=== PATIENT | male | born 1970 | race Caucasian/White ===

== ENCOUNTER 2021-12-05 09:58 | Outpatient (CLI) | payer OTHER, SELFPAY ==
--- OUTSIDE RECORDS SUMMARY | 2021-12-05 10:02 | XMS_ITS | Encounter Summary ---
:1970 Author Care Team Providers Name Role Phone Dr. Ghassan Grace MD Referring Provider [phone] Reason for Visit Obstructive sleep apnea of adult; Snorin g; sleep apnea appliance insertion Assessment and Plan Assessment Note Patient was seen today for follow-up an d insertion of an Nohemi intraoral mandibular advancement appliance. Diagnosis and contributing factors were reviewed. Questions were answered. Today the intraoral appliance was fit to patient comfort. No adjustments were necessary. Instructions on proper use and care were discussed/reviewed both written and verbally. Potential side effects wer e reviewed. The patient was advised to d iscontinue oral appliance use should they experience untoward side effects or be unable to return for follow-up care. The patient was advised to return in 3-4 wee ks to reassess their progress and contin ue their treatment plan as previously outlined. History today was obtained from the vijaya ent. The patient has 2 diagnoses they would like to address. Their symptoms are chronic. This case is low complexity because of limited diagnoses and chronic natu re. Risk of complications including ken toring for complications of treatment were discussed. Today time spent may have included a review of past records, history taking, review of diagnoses, contributi ng factors, treatment plan, diagnostic t esting, prognosis, expectations, risks and complications of treatment/no treatment, discussions with other providers and completing documentation was 25 minutes. 1. Obstructive sleep apnea of adult AHI= 5.1; RDI 14.6 2. Snoring Discussion Note: None recorded.Patient educational handouts: No information available. Plan of Care Reminders Provider Appointments None recorded. ? ? Lab None recorded. ? ? Referral None recorded. ? ? Procedures None recorded. ? ? Surgeries None recorded. ? ? Imaging None recorded. ? ? Medications Name Start Date ? ? lisinopril 20 mg tablet ? TAKE 1 TABLET BY MOUTH EVERY MORNING. simvastatin 20 mg tablet ? TAKE 1 TABLET BY MOUTH DAILY AT BEDTIME. Medications Administered None recorded. Vitals Height Blood Pressure 5 ft 9 in 120/72.98 mm[Hg] Results Lab Results None recorded. Allergies Code Code System Name Reaction Severity Onset NKDA ? ? ? Problems Name Status Onset Date Source ? Obstructive Sleep Apnea of Adult Active 11/09/2019 ? Snoring Active 11/09/2019 ? Procedures Date Name Performed by ? 04/10/2001 [place] Teeth Extraction Information not available Vaccine List Vaccine Type influenza, seasonal, injectable 03/24/2017 SARS-COV-2 COVID-19 VLP Non-US Vaccine ( [place], Covifenz) 06/07/2020 Social History Tobacco Smoking Status Never Smoker What type of diet are you following? REGULAR How many children do you have? 2 Are you currently employed? Y How did primary problem begin? Snoring Relationship Status Employed Work related injury? N Marital Status Do you reside in or have you traveled to an area N where Ebola virus transmission is active? What was the date of your most recent tobacco 05/15/2017 screening? General stress level Medium What number best describes how, during the past 0 week, pain has interfered with your general activity? (0=does not interfere, 10=completely interferes) Do you use any illicit or recreational drugs? N What is your exercise level? Moderate What is your level of alcohol consumption? 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 N What number best describes your pain on average 0 in the past week? (0=no pain, 10=pain as bad as you can imagine) What number best describes how, during the past 0 week, pain has interfered with your enjoyment of life? (0=does not interfere, 10= completely interferes) What is your level of caffeine consumption? 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 Past Encounters 10/01/2021 Obstructive Sleep Apnea of Adult; Nunu Mendez, DDS: [address], [address], [place] [address], Ph. History of Present Illness ? Obstructive Sleep Apnea Reported By: Patient HPI: Associated Symptoms: likelih ood of falling asleep during the day while sitting and reading 0, likel ihood of falling asleep during the day while watching television 1, likel ihood of falling asleep during the day while sitting inactive in a public place 0, likelihood of falling asleep during the day as passenger in car for extended time 0, likelihood of falling asleep during the da y while lying down to rest in the afternoon 1, likelihood of falling asl eep during the day while sitting and talking to someone 0, likelihood of falling asleep during the day while sitting quietly after lunch (no alco hol) 0, likelihood of falling asleep during the day in a car while stopp ed in traffic 0; Cuddy: 2 Note: <div>Patient presents today for insertion of a {{mandibular stabilization maxillary stabilization repositioning mandibular advancement mandibular advancement ([place]eer)#}} oral appliance. They note{{no changes in* improved worsening}} symptoms which along with prior data was reviewed, updated anddocumented in the patient history of present illness. he describes {{compliance* partial compliance non-compliance}} with home self care as previously recommended.</div><div>
</div> Review of Systems ? Comprehensive General Adult ROS Reported By: Patient Constitutional: Constitutional: no fever, no night sweats, no significant weight gain, no significant weight loss, no exercise intolerance Eyes: Eyes: no dry eyes, no vision change, no irritation ENMT: Ears: no difficulty hearing, no ear pain. Nose: no frequent nosebleeds, no nose problems , no sinus problems. Mouth/Throat: no sore throat, no bleeding gums, no dry mouth, no mouth ulcers, no teeth problems, s noring Cardiovascular: Cardiovascular: no chest ирина n, no arm pain on exertion, no shortness of breath when wal debra, no shortness of breath when lying down, no palpitations, no known heart murmur Respiratory: Respiratory: no cough, no wh eezing, no shortness of breath, no coughing up blood, sleep pododermatologist ea Gastrointestinal: Gastrointestinal: no abdomin al pain, no nausea, no vomiting, no constipation, normal appe tite, no diarrhea, not vomiting blood, no dyspepsia, no GERD Genitourinary: Genitourinary: no incontinen ce, no difficulty urinating, no hematuria, no increased freq uency Musculoskeletal: Musculoskeletal: no muscle a ches, no muscle weakness, no arthralgias/joint pain, no b ack pain, no swelling in the extremities Integumentary: Skin: no abnormal mole, no j aundice, no rashes, no laceration Neurologic: Neurologic: no loss of consc iousness, no weakness, no numbness, no seizures, no di zziness, no migraines, no headaches, no tremor Psychiatric: Psych: no depression, no sle ep disturbances, feeling safe in a relationship, no alcohol abu se, no anxiety, no hallucinations, no suicidal thoughts Endocrine: Endocrine: no fatigue Hematologic/Lymphatic: Hematologic/Lymphatic no swo llen glands, no bruising, no excessive bleeding Allergic/Immunologic: Allergy/Immunologic: no runn y nose, no sinus pressure, no itching, no hives, no freque nt sneezing Physical Exam ? TMD-TMJ Exam, TMD General Ex am Reported By: Patient TMJ: Mandibular ROM Maximum openi ng 45 mm (Active) no pain, protrusion 12mm . TMJ palpat ion TMJ palpation was non-painful. TMJ joint sound s no clicking, no crepitus, no locking. Muscle Palpation No complaints of pain/tenderness in the muscles of mastication. Oral Cavity Dental Attrition both, posterior arch both, p osterior, Anterior guidance Vertical 2mm, Anterior sveta nce Horizontal 2 mm, Teeth: intercuspation bilateral pos terior teeth. Oral Cavity - Airway Obstruction hard [place] te WNL, uvula: WNL. Dental Occlusion L Second premolar, L First premolar, L canine, R Second molar, R First molar, R Second premolar, R First premolar, R canine Constitutional: General Appearance oriented to time, place, and person, well-nourished, well-develop ed, no acute distress Musculoskeletal System: Overall Findings normal over all findings Ears, Nose, Throat: Ears Right External ear WNL, Left External ear WNL. Nose External Nose non-tender Neck: Palpation Left side non-tend er, Right side non-tender. Appearance WNL Neurological System: Cranial Nerves Cranial Nerve s II-XII Grossly Intact Psychiatric Exam: Affect Normal affect, Approp riate to situation
--- OUTSIDE RECORDS SUMMARY | 2021-12-05 10:02 | XMS_ITS | Clinical Summary ---
:1970 Author Organization [facility] [place] [address] Care Team Providers Name Role Phone Markus Penny Primary Care Provider Unavailable Allergies No known active allergies Medications Medication Sig Dispensed Refills Start Date End Date Status FLUTICASONE 50 2 PUFFS EACH 1 3 02/10/2006 A ctive MCG/ACTUATION NASAL NOSTRIL QD SPRAY AEROSOLIndications: Other dyspnea and respiratory abnormality, Chronic rhinitis Active Problems Not on file Immunizations Name Administration Dates Next Due Influenza, IIV4 01/06/2019 Family History Medical History Relation Name Comments Diabetes Father Diabetes Maternal Grandfather Diabetes Paternal Grandfather Relation Name Status Comments Father Maternal Grandfather Paternal Grandfather Social History Tobacco Use Types Packs/Day Years Used Date Never Smoker Alcohol Use Standard Drinks/Week Comments Not Asked 0 (1 standard drink = 0.6 oz pure alcoho l) Sex Assigned at Date Recorded Not on file Obstetrics History Last Filed Vital Signs Vital Sign Reading Time Taken Comments Blood Pressure 130/80 02/10/2006 1: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 Pulse - - Temperature 37 ??C (98.6 ??F) 02/10/2006 1: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 Respiratory Rate - - Oxygen Saturation - - Inhaled Oxygen Concentration - - Weight 98.4 kg (217 lb) 02/10/2006 1: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 Height - - Body Mass Index - - Plan of Treatment Health Maintenance Due Date Last Done Comments COVID-19 vaccine series (#1) 04/19/1973 Tdap 10/18/1983 Depression screening for age 12+ 1984 BMI (ht and wt on same day) for age 18+ 1990 Hepatitis C screening for age 18-79 1990 Tetanus booster 1992 Colonoscopy through age 75 2017 Lipids for age 45-75 2017 Influenza for age 9-49 11/07/2021 01/06/2019 Results Not on filefrom Last 3 Months Insurance Payer Benefit Plan / Subscriber ID Effective Dates Phone Addre ss Type Group BLUE CROSS BLUE CROSS OF [id number] Effective for [address] [place] [address] [facility] [id number] 2018-Presen [address] [address] [place] [address] Care Teams Manager Of Security Relationship Specialty Start Date End Date Markus Penny PCP - General 01/26/06
== END 2021-12-05 09:59 | disposition home or self-care (01) ==
PROVIDERS: PCP Physician Assistant Medical; Visit Provider Surgery
DX: Z12.11 Encounter for screening for malignant neoplasm of colon (principal); K63.5 Polyp of colon; Z86.010 Personal history of colon polyps; Z80.0 Family history of malignant neoplasm of digestive organs
CPT/HCPCS: 45385; 88305; J1200; J2250; J2405; J3010

== ENCOUNTER 2022-09-30 08:49 | Outpatient (CLI) | payer OTHER, SELFPAY | END 2022-09-30 08:50 | disposition home or self-care (01) | LOC: NFLDREF 10-01 07:46 | PROVIDERS: PCP Physician Assistant Medical; Referring Provider Physician Assistant Medical; Visit Provider Physician Assistant Medical | DX: Z00.00 Encounter for general adult medical examination without abnormal findings (principal); I10 Essential (primary) hypertension; E78.5 Hyperlipidemia, unspecified; E78.2 Mixed hyperlipidemia | CPT/HCPCS: 80053; 80061 ==

== ENCOUNTER 2023-06-18 19:18 | Outpatient (CLI) | payer OTHER, SELFPAY ==
--- OUTSIDE RECORDS SUMMARY | 2023-06-18 19:22 | XMS_ITS | Clinical Summary ---
Author Name Unknown Organization [facility] Address [place], [place] [address] Care Team Providers Care Analysis Internship Name Role Phone Markus Penny Primary Care Provider Unavailabl e Allergies No known active allergies Medications Medication Sig Dispensed Refills Start Date End Date Status FLUTICASONE 52 MCG/ACTUATION NASAL SPRAY AEROSOLIndications:Oth er dyspnea and respiratory abnormality,Chronic rhinitis 2 PUFFS EACH NOSTRIL QD 1 3 02/10/2006 Active Immunizations Name Administration Dates Next Due Influenza, IIV4 01/06/2019 Family History Medical History Relation Name Comments Diabetes Father Diabetes Maternal Grandfather Diabetes Paternal Grandfather Relation Name Status Comments Father Maternal Grandfather Paternal Grandfather Social History Tobacco Use Types Packs/Day Years Used Date Smoking Tobacco: Never Alcohol Use Standard Drinks/Week Comments Not Asked 0 (1 standard drink = 0.6 oz pur e alcohol) Sex and Gender Information Value Date Recorded Sex Assigned at Not on file Gender Identity Not on file Sexual Orientation Not on file Obstetrics History Last Filed Vital Signs Vital Sign Reading Time Taken Comments Blood Pressure 130/80 02/10/2006 1:15 PM BAKERY HELPER Pulse - - Temperature 37 ??C (98.6 ??F) 02/10/2006 1:15 PM BAKERY HELPER Respiratory Rate - - Oxygen Saturation - - Inhaled Oxygen Concentration - - Weight 98.4 kg (217 lb) 02/10/2006 1:15 PM BAKERY HELPER Height - - Body Mass Index - - Plan of Treatment Health Maintenance Due Date Last Done Comments Tdap 10/18/1983 Depression screening for age 12+ 1984 HIV for age 15-65 10/18/1987 BMI (ht and wt on same day) for age 18+ 1990 Hepatitis C screening for ag e 18-79 1990 Tetanus booster 1992 Colonoscopy through age 75 2017 Lipids for age 45-75 2017 Zoster (shingles) series for age 50+ (1 of 2) 2022 COVID-19 vaccine series (2022-24 season) 2022 Influenza for age 50-64 11/08/2023 01/06/2019 Pneumococcal series for age 6-64 Aged Out No longer eligible based on patient's age to complete this topic Care Teams Analysis Internship Relationship Specialty Start Date End Date Markus Penny PCP - General 01/26/06
== END 2023-06-18 19:19 | disposition home or self-care (01) ==
LOC: LKVREF 19:18
PROVIDERS: PCP Physician Assistant Medical; Visit Provider Physician Assistant
DX: M79.675 Pain in left toe(s) (principal)
CPT/HCPCS: 84550

== ENCOUNTER 2023-11-03 08:10 | Outpatient (CLI) | payer OTHER, SELFPAY | END 2023-11-03 08:11 | disposition home or self-care (01) | LOC: NFLDREF 11-05 12:44 | PROVIDERS: PCP Physician Assistant Medical; Referring Provider Physician Assistant Medical; Visit Provider Physician Assistant Medical | DX: Z00.00 Encounter for general adult medical examination without abnormal findings (principal); I10 Essential (primary) hypertension; E78.5 Hyperlipidemia, unspecified; E78.2 Mixed hyperlipidemia; R79.89 Other specified abnormal findings of blood chemistry; K76.0 Fatty (change of) liver, not elsewhere classified | CPT/HCPCS: 80053; 80061; 84443 ==

== ENCOUNTER 2025-01-12 08:25 | Outpatient (CLI) | payer OTHER, SELFPAY | END 2025-01-12 08:26 | disposition home or self-care (01) | LOC: NFLDREF 01-16 03:38 | PROVIDERS: PCP Physician Assistant Medical; Referring Provider Physician Assistant Medical; Visit Provider Family Medicine | DX: Z00.00 Encounter for general adult medical examination without abnormal findings (principal); E78.5 Hyperlipidemia, unspecified; I10 Essential (primary) hypertension; Z13.1 Encounter for screening for diabetes mellitus; Z12.5 Encounter for screening for malignant neoplasm of prostate | CPT/HCPCS: 80053; 80061; G0103 ==